=== PATIENT | male | born 1970 | race Hispanic/Latino ===

== ENCOUNTER 2018-01-19 11:48 | Emergency (ER) | payer BC ==
--- NOTE | 2018-01-19 12:59 | EDPHYS ---
Physician Documentation [facility] Name: Musa Lees Age: 47 yrs Sex: Male : 1970 Arrival Date: 01/19/2018 Time: 11:49 Bed 25 Private MD: ED Physician Wilson Rodriguez HPI: 01/19 12:57 This 47 yrs old Male presents to ER via Ambulatory with complaints of Sinus kb Congestion, Headache. 12:57 The patient or guardian reports sinus congestion, runny nose . Onset: The kb symptoms/episode began/occurred 2 day(s) ago. Severity of symptoms: At their worst the symptoms were mild, in the emergency department the symptoms are unchanged. Modifying factors: The symptoms are alleviated by nothing, the symptoms are aggravated by nothing. Associated signs and symptoms: Pertinent positives: rhinorrhea, Pertinent negatives: chest pain, diarrhea, ear ache, fever, nausea, sore throat, vomiting. The patient has not experienced similar symptoms in the past. The patient has not recently seen a physician. Historical: - Allergies: 11:54 No Known Allergies; hb - Home Meds: 11:54 atorvastatin 40 mg Oral tab 1 tab once daily [Active]; losartan 25 mg Oral tab 1 tab hb once daily [Active]; metoprolol tartrate 25 mg Oral tab 1 tab 2 times per day [Active]; - PMHx: 11:54 High Cholesterol; kawasaki disease; hb - PSHx: 11:54 None; hb - Immunization history:: Adult Immunizations up to date. - Social history:: Smoking status: Patient uses tobacco products, denies chronic smoking, but will smoke occasionally. ROS: 12:56 Constitutional: Negative for fever, chills, and weight loss, Cardiovascular: Negative kb for chest pain, palpitations, and edema, Respiratory: Negative for shortness of breath, cough, wheezing, and pleuritic chest pain, Abdomen/GI: Negative for abdominal pain, nausea, vomiting, diarrhea, and constipation, MS/Extremity: Negative for injury and deformity, Skin: Negative for injury, rash, and discoloration, Neuro: Negative for headache, weakness, numbness, tingling, and seizure. 12:56 ENT: Positive for rhinorrhea, sinus congestion, sinus pain. Exam: 12:56 Constitutional: This is a well developed, well nourished patient who is awake, alert, kb and in no acute distress. Head/Face: Normocephalic, atraumatic. Chest/axilla: Normal chest wall appearance and motion. Nontender with no deformity. No lesions are appreciated. Cardiovascular: Regular rate and rhythm with a normal S1 and S2. No gallops, murmurs, or rubs. Normal PMI, no JVD. No pulse deficits. Respiratory: Lungs have equal breath sounds bilaterally, clear to auscultation and percussion. No rales, rhonchi or wheezes noted. No increased work of breathing, no retractions or nasal flaring. Abdomen/GI: Soft, non-tender, with normal bowel sounds. No distension or tympany. No guarding or rebound. No evidence of tenderness throughout. Skin: Warm, dry with normal turgor. Normal color with no rashes, no lesions, and no evidence of cellulitis. MS/ Extremity: Pulses equal, no cyanosis. Neurovascular intact. Full, normal range of motion. Neuro: Awake and alert, GCS 15, oriented to person, place, time, and situation. Cranial nerves II-XII grossly intact. Motor strength 5/5 in all extremities. Sensory grossly intact. Cerebellar exam normal. Normal gait. 12:56 ENT: 12:56 ENT: External ear(s): are unremarkable, Ear canal(s): are normal, TM's: are normal, Nose: is normal, Mouth: is normal, Posterior pharynx: pooling of secretions. Vital Signs: 11:54 BP 137 / 89; Pulse 70; Resp 16; Temp 98; Pulse Ox 97% on R/A; Weight 109.77 kg; Height hb 5 ft. 8 in. (172.72 cm); Pain 5/10; 11:54 Body Mass Index 36.80 (109.77 kg, 172.72 cm) hb MDM: 12:50 Patient medically screened. kb 12:57 Data reviewed: vital signs, nurses notes. Data interpreted: Pulse oximetry: on room air kb is 97 %. Interpretation: normal. Counseling: I had a detailed discussion with the patient and/or guardian regarding: the historical points, exam findings, and any diagnostic results supporting the discharge/admit diagnosis, the need for outpatient follow up, a family practitioner, to return to the emergency department if symptoms worsen or persist or if there are any questions or concerns that arise at home. Administered Medications: No medications were administered Disposition: 15:11 Co-signature as Attending Physician, Wilson Rodriguez MD I agree with the assessment and [facility] plan of care. Disposition: 01/19/18 12:59 Discharged to Home. Impression: Acute sinusitis. - Condition is Stable. - Discharge Instructions: Sinusitis, [id number]. - Medication Reconciliation Form, Thank You Letter, Antibiotic Education, Prescription Opioid Use, Work release form form. - Follow up: Private Physician; When: 2 - 3 days; Reason: Recheck today's complaints, Continuance of care, Re-evaluation by your physician. Follow up: Emergency Department; When: As needed; Reason: Worsening of condition. Signatures: Angelica Larson, HILARY-C CAREER DEVELOPER-Wilson Scales MD MD cha Smirch, Shelby, RN RN Kat Turpin, PADMINI RN
--- NOTE | 2018-01-19 12:59 | ER ---
Nurse's Notes [facility] Name: Musa Lees Age: 47 yrs Sex: Male : 1970 Arrival Date: 01/19/2018 Time: 11:49 Bed 25 Private MD: Diagnosis: Acute sinusitis Presentation: 01/19 11:52 Presenting complaint: Patient states: Sinus pressure and congestion x 3 days. hb Transition of care: patient was not received from another setting of care. Onset of symptoms was January 17, 2018. Care prior to arrival: None. 11:52 Method Of Arrival: Ambulatory 11:52 Acuity: MARY JO 4 Triage Assessment: 11:54 Headache History: The patient has had previous headaches and this one is similar to previous episodes. General: Appears in no apparent distress. Behavior is calm, cooperative. Pain: Pain currently is 5 out of 10 on a pain scale. Pain began 2-3 days ago. Also complains of no other associated symptoms. Neuro: Level of Consciousness is awake, alert, obeys commands, Oriented to person, place, time, situation. Cardiovascular: Capillary refill < 3 seconds Patient's skin is warm and dry. Respiratory: Airway is patent Respiratory effort is even, unlabored, Respiratory pattern is regular, symmetrical. Historical: - Allergies: 11:54 No Known Allergies; hb - Home Meds: 11:54 atorvastatin 40 mg Oral tab 1 tab once daily [Active]; losartan 25 mg Oral tab 1 tab hb once daily [Active]; metoprolol tartrate 25 mg Oral tab 1 tab 2 times per day [Active]; - PMHx: 11:54 High Cholesterol; kawasaki disease; hb - PSHx: 11:54 None; hb - Immunization history:: Adult Immunizations up to date. - Social history:: Smoking status: Patient uses tobacco products, denies chronic smoking, but will smoke occasionally. Screenin:10 Abuse screen: Denies threats or abuse. Denies injuries from another. Nutritional lk1 screening: No deficits noted. Tuberculosis screening: No symptoms or risk factors identified. Fall Risk None identified. Assessment: 13:00 General: Appears in no apparent distress. Behavior is calm, cooperative, appropriate lk1 for age. Pain: Complains of pain in head Pain currently is 7 out of 10 on a pain scale. Neuro: Level of Consciousness is awake, alert, obeys commands, Oriented to person, place, time, situation, Gait is steady, Speech is normal, Facial symmetry appears normal, Pupils are PERRLA. Cardiovascular: Heart tones S1 S2 present Capillary refill is brisk Patient's skin is warm and dry. Respiratory: Airway is patent Respiratory effort is even, unlabored, Respiratory pattern is regular, symmetrical. GI: Abdomen is non-distended. EENT: Reports nasal congestion. Vital Signs: 11:54 BP 137 / 89; Pulse 70; Resp 16; Temp 98; Pulse Ox 97% on R/A; Weight 109.77 kg; Height hb 5 ft. 8 in. (172.72 cm); Pain 5/10; 11:54 Body Mass Index 36.80 (109.77 kg, 172.72 cm) hb ED Course: 11:49 Patient arrived in ED. as 11:53 Triage completed. hb 11:53 Arm band placed on left wrist. hb 12:50 Angelica Larson [facility]C [facility] kb 12:50 Wilson Rodriguez MD is Attending Physician. kb 13:09 Raven Lerma, RN is Primary Nurse. lk1 13:10 Patient has correct armband on for positive identification. Bed in low position. Call lk1 light in reach. 13:11 No provider procedures requiring assistance completed. Patient did not have IV access lk1 during this emergency room visit. Administered Medications: No medications were administered Outcome: 12:59 Discharge ordered by MD. kb 13:16 Discharged to home ambulatory. ss 13:16 Condition: good 13:16 Discharge instructions given to patient, Instructed on discharge instructions, follow up and referral plans. Demonstrated understanding of instructions, follow-up care. 13:17 Patient left the ED. ss Signatures: Angelica Larson FNP-C FNP-Reena Rosenberg Shelby, RN RN Raven Lerma, PADMINI RN lk1 Kat Juan RN RN hb
== END 2018-01-19 13:17 | disposition home or self-care (01) ==
LOC: ER 11:48
DX: J01.90 Acute sinusitis, unspecified (principal); E78.00 Pure hypercholesterolemia, unspecified; Z72.0 Tobacco use
CPT/HCPCS: 99281